=== PATIENT | female | born 1975 | race American Indian/Alaskan Native ===

== ENCOUNTER 2020-07-24 17:49 | Emergency (ER) | payer OTHER ==
--- NOTE | 2020-07-24 19:14 | Event Note ---
ED Screening Note ED Screening Note: This is a 44-year-old female that presents with chest pain and SOB that started today. Describes chest pain as tightness. Denies any cough. Denies any history of cardiac. This initial assessment/diagnostic orders/clinical plan/treatment(s) is/are subject to change based on patients health status, clinical progression and re- assessment by fellow clinical providers in the ED. Further treatment and workup at subsequent clinical providers discretion. Patient/guardian urged not to elope from the ED as their condition may be serious if not clinically assessed and managed. Initial orders include: cardic workup
[2020-07-24 20:55] LABS: Basophils % (Auto) 0.2 % (0.0-1.8); Eosinophils % (Auto) 0.3 % (0.0-4.3); Hematocrit 36.2 % (30.3-42.9); Hemoglobin 11.7 gm/dl (10.1-14.3); Lymphocytes # (Auto) 1.3 K/mm3 (1.2-5.4); Lymphocytes % (Auto) 24.8 % (13.4-35.0); Mean Corpuscular HGB Conc 32 % (30-34); Mean Corpuscular Volume 88 fl (79-97); Monocytes # (Auto) 0.4 K/mm3 (0.0-0.8); Monocytes % (Auto) 6.6 % (0.0-7.3); Platelet Count 218 K/mm3 (140-440); Red Blood Count 4.11 M/mm3 (3.65-5.03); Red Cell Distribution Width 13.4 % (13.2-15.2)
[2020-07-24 20:59] LABS: Alanine Aminotransferase 14 units/L (7-56); BUN/Creatinine Ratio 15; Blood Urea Nitrogen 12 mg/dL (7-17); Calcium 8.9 mg/dL (8.4-10.2); Hemolysis Index 8
[2020-07-24 21:02] LABS: INR 0.96 (0.87-1.13)
[2020-07-24 21:03] LABS: Partial Thromboplastin Time 35.2 Sec. (24.2-36.6)
--- NOTE | 2020-07-24 21:38 | XRay Report ---
CHEST 2 VIEWS INDICATION / CLINICAL INFORMATION: Chest Pain. COMPARISON: None available. FINDINGS: SUPPORT DEVICES: None. HEART / MEDIASTINUM: No significant abnormality. LUNGS / PLEURA: No significant pulmonary or pleural abnormality. No pneumothorax. ADDITIONAL FINDINGS: No significant additional findings. IMPRESSION: 1. No acute findings. Signer Name: Kenrick Chadwick MD Signed: 07/24/2020 9:33 PM Workstation Name: [id number]
[2020-07-24] MEDS ORDERED: ACETAMINOPHEN 325 MG TAB PO ONE (23:43)
[2020-07-24] MEDS ORDERED: IBUPROFEN 400 MG TAB PO ONE (23:43)
--- NOTE | 2020-07-24 23:51 | Emergency Department Report ---
ED Chest Pain HPI - General Chief Complaint: Dyspnea/Respdistress Stated Complaint: CHEST PAIN PUI?: No Time Seen by Provider: 07/24/20 19:12 Source: patient Mode of arrival: Ambulatory Limitations: No Limitations - History of Present Illness Initial Comments: The patient was evaluated in the emergency department for symptoms described in the history of present illness. He/she was evaluated in the context of the global COVID-19 pandemic, which necessitated consideration that the patient might be at risk for infection with the virus that causes COVID-19. Institutional protocols and algorithms that pertain to the evaluation of patients at risk for COVID-19 are in a state of rapid change based on information released by regulatory bodies including the CDC and federal and state organizations. These policies and algorithms were followed during the patient's care in the emergency department. Please note that these policies, procedures and recommendations changed on a rapid basis. During the history and physical examination, I am chaperoned by [employer] Brittaney Avery The patient is a 44-year-old female who is not known to myself previously. She is right-hand dominant. She denies chronic medical conditions. She denies , oral contraceptive use, recent delivery/ within the past 6 weeks. She presents to the ER with a complaint of nontraumatic left-sided chest wall pain, which does not radiate to the back, arms or neck, and is not associate with vomiting, diaphoresis, or exertional shortness of breath. The patient does a lot of heavy lifting for work. The patient states the pain star latoya at around 5:00 PM. It is mostly resolved at this time. The patient said that when the pain started, it felt like she was having trouble breathing properly. However, she feels like her "breathing is fine now", she has no exertional shortness of breath. There is no leg pain or leg swelling. She believes her father had a history of ischemic heart disease in his 60s, but she is not certain. Otherwise, no family history of DVT or pulmonary embolism, or ischemic heart disease. She denies travel, surgery, oral contraceptive use, DVT and pulmonary embolism risk factors. She denies additional acute complaints. MD Complaint: chest pain -: Sudden, hour(s) Onset: during rest Pain Location: left chest Pain Radiation: none Severity: moderate Quality: aching Consistency: intermittent Improves With: rest Worsens With: palpation re: denies: nausea, vomting, diaphoresis Aspirin use within the Past 7 Days: (0) No - Related Data Allergies Allergy/AdvReac Type Severity Reaction Status Date / Time No Known Allergies Allergy Unverified 07/24/20 17:59 Heart Score - HEART Score History: Slightly suspicious EKG: Non-specific Age: < 45 Risk factors: 1-2 risk factors Troponin: < normal limit HEART Score: 2 - Critical Actions Critical Actions: 0-3 pts:0.9-1.7%risk of adverse cardiac event.Candidate for discharge ED Review of Systems ROS: Stated complaint: CHEST PAIN Other details as noted in HPI Constitutional: denies: fever Eyes: denies: eye discharge ENT: congestion Respiratory: denies: cough, wheezing Cardiovascular: chest pain Gastrointestinal: denies: abdominal pain, nausea, vomiting, hematemesis, melena, hematochezia Genitourinary: denies: dysuria Musculoskeletal: denies: back pain Neurological: denies: weakness Hematological/Lymphatic: denies: easy bleeding ED Past Medical Hx - Past Medical History Previous Medical History?: Yes Additional medical history: Lupus - Surgical History Past Surgical History?: No - Social History Smoking Status: Never Smoker Substance Use Type: Alcohol ED Physical Exam - General Limitations: No Limitations General appearance: alert, in no apparent distress - Head Head exam: Present: atraumatic, normocephalic - Eye Eye exam: Present: normal appearance, EOMI. Absent: nystagmus - ENT ENT exam: Present: normal exam, normal orophraynx, mucous membranes moist, normal external ear exam - Neck Neck exam: Present: normal inspection, full ROM. Absent: tenderness, meningismus - Respiratory Respiratory exam: Present: normal lung sounds bilaterally, chest wall tenderness. Absent: respiratory distress, wheezes, rales, rhonchi, stridor, decreased breath sounds - Cardiovascular Cardiovascular Exam: Present: regular rate, normal rhythm, normal heart sounds. Absent: bradycardia, tachycardia, irregular rhythm, systolic murmur, diastolic murmur, rubs, gallop - GI/Abdominal GI/Abdominal exam: Present: soft. Absent: distended, tenderness, guarding, rebound, rigid, pulsatile mass - Extremities Exam Extremities exam: Present: normal inspection, full ROM, normal capillary refill, other (2+ pulses noted in the bilateral upper and lower extremities. There is no palpable cord. negative Homans sign. Muscular compartments are soft. The pelvis is stable.). Absent: pedal edema, calf tenderness - Back Exam Back exam: Present: normal inspection, full ROM. Absent: tenderness, CVA tenderness (R), CVA tenderness (L), paraspinal tenderness, vertebral tenderness - Neurological Exam Neurological exam: Present: alert, oriented X3, normal gait, other (No facial droop. Tongue midline. Extraocular movements intact bilaterally. Facial sensation intact to light touch in V1, V2, V3 distribution bilaterally. 5 and a 5 strength in 4 extremities. Sensation intact to light touch in 4 extremities.). Absent: motor sensory deficit - Psychiatric Psychiatric exam: Present: normal affect, normal mood - Skin Skin exam: Present: warm, dry, intact, normal color. Absent: rash ED Course Vital Signs 07/24/20 17:59 Temperature 98.2 F Pulse Rate 109 H Respiratory 22 Rate Blood Pressure 140/94 O2 Sat by Pulse 100 Oximetry POLO score - Polo Score Age > 65: (0) No Aspirin use within the Past 7 Days: (0) No 3 or more CAD Risk Factors: (0) No 2 or more Angina events in past 24 hrs: (0) No Known CAD with more than 50% Stenosis: (0) No Elevated Cardiac Markers: (0) No ST Deviation Greater than 0.5mm: (0) No POLO Score: 0 ED Medical Decision Making - Lab Data Result diagrams: 07/24/20 19:16 07/24/20 19:16 Vital Signs 07/24/20 17:59 Temperature 98.2 F Pulse Rate 109 H Respiratory 22 Rate Blood Pressure 140/94 O2 Sat by Pulse 100 Oximetry Lab Results 07/24/20 07/24/20 07/24/20 Range/Units 19:16 19:16 19:16 WBC 5.3 (4.5-11.0) K/mm3 RBC 4.11 (3.65-5.03) M/mm3 Hgb 11.7 (10.1-14.3) gm/dl Hct 36.2 (30.3-42.9) % MCV 88 (79-97) fl MCH 29 (28-32) pg MCHC 32 (30-34) % RDW 13.4 (13.2-15.2) % Plt Count 218 (140-440) K/mm3 Lymph % (Auto) 24.8 (13.4-35.0) % Hendry % (Auto) 6.6 (0.0-7.3) % Eos % (Auto) 0.3 (0.0-4.3) % Baso % (Auto) 0.2 (0.0-1.8) % Lymph # (Auto) 1.3 (1.2-5.4) K/mm3 Hendry # (Auto) 0.4 (0.0-0.8) K/mm3 Eos # (Auto) 0.0 (0.0-0.4) K/mm3 Baso # (Auto) 0.0 (0.0-0.1) K/mm3 Seg Neutrophils % 68.1 (40.0-70.0) % Seg Neutrophils # 3.6 (1.8-7.7) K/mm3 PT 12.6 (12.2-14.9) Sec. INR 0.96 (0.87-1.13) APTT 35.2 (24.2-36.6) Sec. Sodium 141 (137-145) mmol/L Potassium 4.4 (3.6-5.0) mmol/L Chloride 105.3 (98-107) mmol/L Carbon Dioxide 25 (22-30) mmol/L Anion Gap 15 mmol/L BUN 12 (7-17) mg/dL Creatinine 0.8 (0.6-1.2) mg/dL Estimated GFR > 60 ml/min BUN/Creatinine Ratio 15 % Glucose 107 H (65-100) mg/dL Calcium 8.9 (8.4-10.2) mg/dL Total Bilirubin < 0.20 (0.1-1.2) mg/dL AST 16 (5-40) units/L ALT 14 (7-56) units/L Alkaline Phosphatase 103 (35-129) units/L Troponin T < 0.010 (0.00-0.029) ng/mL Total Protein 7.3 (6.3-8.2) g/dL Albumin 4.0 (3.9-5) g/dL Albumin/Globulin Ratio 1.2 % HCG, Qual (Negative) 07/24/20 Range/Units 19:16 WBC (4.5-11.0) K/mm3 RBC (3.65-5.03) M/mm3 Hgb (10.1-14.3) gm/dl Hct (30.3-42.9) % MCV (79-97) fl MCH (28-32) pg MCHC (30-34) % RDW (13.2-15.2) % Plt Count (140-440) K/mm3 Lymph % (Auto) (13.4-35.0) % Hendry % (Auto) (0.0-7.3) % Eos % (Auto) (0.0-4.3) % Baso % (Auto) (0.0-1.8) % Lymph # (Auto) (1.2-5.4) K/mm3 Hendry # (Auto) (0.0-0.8) K/mm3 Eos # (Auto) (0.0-0.4) K/mm3 Baso # (Auto) (0.0-0.1) K/mm3 Seg Neutrophils % (40.0-70.0) % Seg Neutrophils # (1.8-7.7) K/mm3 PT (12.2-14.9) Sec. INR (0.87-1.13) APTT (24.2-36.6) Sec. Sodium (137-145) mmol/L Potassium (3.6-5.0) mmol/L Chloride (98-107) mmol/L Carbon Dioxide (22-30) mmol/L Anion Gap mmol/L BUN (7-17) mg/dL Creatinine (0.6-1.2) mg/dL Estimated GFR ml/min BUN/Creatinine Ratio % Glucose (65-100) mg/dL Calcium (8.4-10.2) mg/dL Total Bilirubin (0.1-1.2) mg/dL AST (5-40) units/L ALT (7-56) units/L Alkaline Phosphatase (35-129) units/L Troponin T (0.00-0.029) ng/mL Total Protein (6.3-8.2) g/dL Albumin (3.9-5) g/dL Albumin/Globulin Ratio % HCG, Qual Negative (Negative) - EKG Data -: EKG Interpreted by Id EKG shows normal: sinus rhythm Rate: normal - EKG Data 07/24/20 23:50 EKG #2 shows a sinus rhythm, 69 bpm, normal axis, normal intervals, question juvenile T wave inversion V2. Abnormal EKG. Not a STEMI. It appears to be unchanged from EKG #1. EKG #1 shows a sinus rhythm, 87 bpm, normal axis, normal intervals, T wave inversion V2. This EKG is not a STEMI. Unchanged from EKG #2. - Radiology Data Radiology results: pending, report reviewed, image reviewed CHEST 2 VIEWS INDICATION / CLINICAL INFORMATION: Chest Pain. COMPARISON: None available. FINDINGS: SUPPORT DEVICES: None. HEART / MEDIASTINUM: No significant abnormality. LUNGS / PLEURA: No significant pulmonary or pleural abn ormality. No pneumothorax. ADDITIONAL FINDINGS: No significant additional findings. IMPRESSION: 1. No acute findings. Signer Name: Kenrick Chadwick MD Signed: 07/24/2020 8:33 PM Workstation Name: [id number] - Medical Decision Making Differential diagnosis, including but not limited to: Costochondritis, GERD, gastritis, hiatal hernia, pneumonia, myocarditis, pericarditis, pericardial effusion, coronary artery disease Assessment and plan: 44-year-old female, who is not currently tachycardic, tachypneic or hypoxic, who denies DVT and pulmonary embolism risk factors, who is low risk by Wells criteria for pulmonary embolism, with resolved tachycardia EKG unchanged x2, troponin negative x 2 Patient has equal pulses in the upper and lower extremities, no pulsatile abdominal mass, and an unremarkable x-ray of the chest, therefore, aortic disease is very unlikely. Patient at low risk for major adverse cardiac event as per heart score. Given reproducibility, history and physical, do not have a high suspicion for GERD, gastritis, hiatal hernia at this time. Pneumonia is unlikely given history, physical, and x-ray findings. I find coronary artery disease of significance to be unlikely. As per this institutions policy, procedure, protocol, patient's information is transmitted to [facility] heart cardiology, whereby patient should be contacted within the next 2 days to arrange close outpatient follow-up I have discussed this plan of care with the patient, who verbalized understanding, and who is amenable to this plan of care. Tachycardia resolved. Critical care attestation.: If time is entered above; I have spent that time in minutes in the direct care of this critically ill patient, excluding procedure time. ED Disposition Clinical Impression: Chest wall pain Disposition: DC-01 TO HOME OR SELFCARE Is pt being admited?: No Does the pt Need Aspirin: No Condition: Good Instructions: Chest Pain (ED), Chest Wall Pain Additional Instructions: Rest, avoid heavy lifting, and avoid strenuous physical activities. Participate in physical activities as tolerated. Patient may alternate ibuprofen, [id number], 400 mg by mouth, with food, every 6 hours as needed for pain, with acetaminophen, 650 mg by mouth, every 4-6 hours as needed for pain, maximum daily dose of acetaminophen/Tylenol to not exceed 3 g per 24 hours. We recommend follow-up with a teacher private within the next 3 to 5 days. Please follow-up with any of the cardiology groups listed on this paperwork. In addition, patient's contact information has been transmitted to these local cardiology practices, where they should contact the patient first thing Saturday, July 26, to arrange outpatient follow-up. However, we strongly idania mmend that the patient contact the cardiology group to arrange outpatient follow-up. Please return to the emergency room right away with new pain, worsened pain, migration of pain, projectile vomiting, change in mental status, confusion, inability to tolerate liquid feeds, new, worsened or different symptoms not present on the initial emergency room evaluation. Referrals: [facility] [Provider Group] - 3-5 Days [facility] [Provider Group] - 3-5 Days MAYITO HOUSER MD [Staff Physician] - 3-5 Days Forms: Work/School Release Form(ED)
[2020-07-25 00:39] VITALS: BP 137/90
== END 2020-07-25 01:47 | disposition home or self-care (01) ==
LOC: ED 17:49
DX: R07.89 Other chest pain (principal); Z79.899 Other long term (current) drug therapy
CPT/HCPCS: 36415; 71046; 80053; 84484; 84703; 85025; 85610; 85730; 93005